=== PATIENT | female | born 1945 | race Caucasian/White ===

== ENCOUNTER 2018-08-14 16:28 | Inpatient (IN) ==
[2018-08-14] MEDS: NOREPINEPHRINE 8 MG in SODIUM CHLORIDE 0.9% 242 ML IV PRN ×2 (18:30→20:30)
[2018-08-14] MEDS ORDERED: DOPamine 800 MG/250 ML PREMIX IV PRN (18:37)
[2018-08-14] MEDS ORDERED: ONDANSETRON 4 MG/2 ML VIAL IV PRN (19:03)
[2018-08-14] MEDS ORDERED: ALBUTEROL 2.5 MG/3 ML NEB RESP TX PRN (19:03)
[2018-08-14] MEDS ORDERED: SODIUM CHLORIDE 0.9% 1,000 ML IV ONE ×2 (19:18→21:41)
[2018-08-14 19:29] LABS: Apearance,Urine CLEAR (Clear); Bacteria,Urine Occasional /HPF (Few); Bilirubin,Urine Negative (Negative); Blood, Urine Moderate mg/dL (Negative); Glucose,Urine (UA) Negative (Negative); Ketones,Urine 5 mg/dL (Negative); Nitrite,Urine Negative (Negative); Protein,Urine 30 MG/DL; RBC,Urine 2 /HPF (0-4); Urine Color Straw (Yellow); Urine Specific Gravity 1.008 (1.001-1.035); Urine Urobilinogen < 2.0 EU/DL (0.2-1.0); WBC,Urine 8 /HPF (0-6)
[2018-08-14] MEDS ORDERED: PIPERACILLIN/TAZOBACTAM 3,375 MG in SODIUM CHLORIDE 0.9% 100 ML IV SCH (19:30)
[2018-08-14] MEDS ORDERED: HEPARIN/NACL 0.9% 2 UNITS/ML 500 ML IV ONE (20:06)
[2018-08-14 20:22] LABS: Albumin 2.2 G/DL (3.4-5.0); Bilirubin,Total 0.8 MG/DL (0.2-1.0); Calcium 6.8 MG/DL (8.5-10.1); Osmolality,Calculated 294.3 MOS/KG (273-304); Total Protein 5.3 G/DL (6.4-8.3)
[2018-08-14 21:01] LABS: Basophils # 0.1 10*3/uL (0.0-0.2); Basophils % 0.3 % (0.0-0.8); Hematocrit 27.8 VOL% (35.7-47.0); Hemoglobin 8.5 GM/DL (12.0-16.0); Immature Granulocytes % 1.4 %; Immature Granulocytes Absolute 0.27 #; Lymphocytes # 2.3 10*3/uL (1.4-4.0); Lymphocytes % 11.7 % (21.3-54.2); Mean Corpuscular HGB Conc 30.6 GM/DL (32-36); Mean Corpuscular Volume 96.5 FL (87-102); Mean Platelet Volume 9.3 FL (9.6-12.0); Monocytes % 6.6 % (1.7-12.7); NRBC # 0.02 10*3/uL; Platelet Count 228 T/CUMM (130-400); Red Blood Count 2.88 MC/CUMM (3.8-5.5); Red Cell Distribution Width 14.2 % (9.3-17.3); White Blood Count 19.7 T/CUMM (4-12)
[2018-08-14] MEDS: ENOXAPARIN 30 MG/0.3 ML SYRINGE SUBCUT SCH (21:16)
[2018-08-14 21:34] LABS: INR 1.2; PT Patient Result 13.4 SECS
[2018-08-14] MEDS: VANCOMYCIN INJ 750 MG in SODIUM CHLORIDE 0.9% 250 ML IV SCH (22:45)
[2018-08-14] MEDS: SODIUM CHLORIDE 0.9% 1,000 ML IV SCH (22:45)
[2018-08-14] MEDS ORDERED: VANCOMYCIN INJ 250 MG in SODIUM CHLORIDE 0.9% 250 ML IV SCH (23:00)
[2018-08-15 01:27] LABS: ABG Base Excess -2.5 MMOL/L (-2.5-2.5); ABG HCO3 22.3 MMOL/L (20-26); ABG Oxygen Saturation 98.4 % (95-100); ABG PCO2 33.7 MM HG (35-48); ABG PH 7.414 (7.35-7.45); Allen Test Positive; Pt O2 Delivery Device Ventilator
[2018-08-15 04:30] LABS: ABG Oxygen Saturation 96.5 % (95-100); ABG PCO2 30.1 MM HG (35-48); ABG PH 7.421 (7.35-7.45); ABG PO2 83.5 MM HG (80-95); Allen Test Positive; Pt O2 Delivery Device Ventilator
[2018-08-15] MEDS: MIDAZOLAM 100 MG in SODIUM CHLORIDE 0.9% 80 ML IV PRN (04:51)
[2018-08-15 05:07] LABS: Basophils % 0.2 % (0.0-0.8); Hematocrit 26.2 VOL% (35.7-47.0); Hemoglobin 8.2 GM/DL (12.0-16.0); Immature Granulocytes % 0.8 %; Immature Granulocytes Absolute 0.11 #; Lymphocytes # 1.4 10*3/uL (1.4-4.0); Lymphocytes % 10.5 % (21.3-54.2); Mean Corpuscular HGB Conc 31.3 GM/DL (32-36); Mean Corpuscular Volume 94.2 FL (87-102); Mean Platelet Volume 10.1 FL (9.6-12.0); Monocytes % 5.5 % (1.7-12.7); Platelet Count 196 T/CUMM (130-400); Red Blood Count 2.78 MC/CUMM (3.8-5.5); Red Cell Distribution Width 14.4 % (9.3-17.3); White Blood Count 13.2 T/CUMM (4-12)
[2018-08-15 05:41] LABS: CKMB % 1.5 %
[2018-08-15 05:50] LABS: Troponin I 0.166 NG/ML (0.00-0.045)
[2018-08-15] MEDS: SODIUM CHLORIDE 0.9% 1,000 ML IV SCH ×2 (06:05→15:48)
[2018-08-15 06:40] LABS: Bilirubin,Total 0.6 MG/DL (0.2-1.0); Osmolality,Calculated 292.4 MOS/KG (273-304); Total Protein 4.6 G/DL (6.4-8.3)
[2018-08-15 06:43] LABS: Calcium 5.6 MG/DL (8.5-10.1)
[2018-08-15] MEDS ORDERED: MAGNESIUM SULF RIDER 2 GM in PREMIX 1 EACH IV ONE (06:55)
[2018-08-15] MEDS ORDERED: CALCIUM GLUCONATE 2,000 MG in SODIUM CHLORIDE 0.9% 100 ML IV ONE (07:30)
[2018-08-15] MEDS: POTASSIUM CHLORIDE RIDER 10 MEQ in PREMIX 1 EACH IV PRN (07:42)
[2018-08-15] MEDS: CLOPIDOGREL 75 MG TABLET PO SCH (08:21)
[2018-08-15] MEDS: CYANOCOBALAMIN 500 MCG TABLET PO SCH (08:21)
[2018-08-15] MEDS: PIPERACILLIN/TAZOBACTAM 3,375 MG in SODIUM CHLORIDE 0.9% 100 ML IV SCH ×2 (09:24→20:08)
[2018-08-15] MEDS: FAMOTIDINE 20 MG/2 ML VIAL IV SCH (11:47)
[2018-08-15] MEDS: AZITHROMYCIN INJ 500 MG in SODIUM CHLORIDE 0.9% 250 ML IV SCH (15:11)
[2018-08-15] MEDS: SODIUM CHLORIDE 0.45% 1,000 ML IV SCH (15:47)
[2018-08-15] MEDS: DRONEDARONE 400 MG TABLET PO SCH (17:24)
[2018-08-15] MEDS: ENOXAPARIN 30 MG/0.3 ML SYRINGE SUBCUT SCH (20:08)
[2018-08-15] MEDS: NOREPINEPHRINE 8 MG in SODIUM CHLORIDE 0.9% 242 ML IV PRN (22:03)
[2018-08-16 04:00] LABS: Basophils % 0.3 % (0.0-0.8); Hematocrit 23.8 VOL% (35.7-47.0); Hemoglobin 7.3 GM/DL (12.0-16.0); Immature Granulocytes % 0.7 %; Immature Granulocytes Absolute 0.08 #; Lymphocytes # 1.3 10*3/uL (1.4-4.0); Lymphocytes % 11.8 % (21.3-54.2); Mean Corpuscular HGB Conc 30.7 GM/DL (32-36); Mean Corpuscular Volume 95.6 FL (87-102); Mean Platelet Volume 9.4 FL (9.6-12.0); Monocytes % 6.8 % (1.7-12.7); Neutrophils % 80.4 % (38.7-73.9); Platelet Count 194 T/CUMM (130-400); Red Blood Count 2.49 MC/CUMM (3.8-5.5); Red Cell Distribution Width 14.7 % (9.3-17.3)
[2018-08-16 04:13] LABS: Calcium 6.2 MG/DL (8.5-10.1); Osmolality,Calculated 291.8 MOS/KG (273-304)
[2018-08-16] MEDS ORDERED: SODIUM CHLORIDE 0.9% 1,000 ML IV PRN (04:55)
[2018-08-16] MEDS: SODIUM CHLORIDE 0.45% 1,000 ML IV SCH ×2 (05:25→23:46)
[2018-08-16 05:33] LABS: ABG Base Excess -1.5 MMOL/L (-2.5-2.5); ABG HCO3 23.2 MMOL/L (20-26); ABG Oxygen Saturation 99.9 % (95-100); ABG PCO2 26.9 MM HG (35-48); ABG PH 7.501 (7.35-7.45); ABG TCO2 19.7 MMOL/L (23-27); Allen Test Positive; Pt O2 Delivery Device Ventilator
[2018-08-16] MEDS: CLOPIDOGREL 75 MG TABLET PO SCH ×2 (08:07→09:35)
[2018-08-16] MEDS: PIPERACILLIN/TAZOBACTAM 3,375 MG in SODIUM CHLORIDE 0.9% 100 ML IV SCH ×2 (08:07→20:56)
[2018-08-16] MEDS: CYANOCOBALAMIN 500 MCG TABLET PO SCH (08:07)
[2018-08-16] MEDS: DRONEDARONE 400 MG TABLET PO SCH ×2 (08:07→17:17)
[2018-08-16 10:04] LABS: Hematocrit 28.9 VOL% (35.7-47.0); Hemoglobin 9.1 GM/DL (12.0-16.0)
[2018-08-16] MEDS: FAMOTIDINE 20 MG/2 ML VIAL IV SCH (10:37)
[2018-08-16] MEDS: MIDAZOLAM 100 MG in SODIUM CHLORIDE 0.9% 80 ML IV PRN (10:59)
[2018-08-16] MEDS ORDERED: CALCIUM GLUCONATE 1,000 MG in SODIUM CHLORIDE 0.9% 100 ML IV SCH (14:30)
[2018-08-16] MEDS: AZITHROMYCIN INJ 500 MG in SODIUM CHLORIDE 0.9% 250 ML IV SCH (14:45)
[2018-08-16] MEDS: ACETAMINOPHEN 325 MG TABLET PO PRN (17:54)
[2018-08-16] MEDS: ENOXAPARIN 30 MG/0.3 ML SYRINGE SUBCUT SCH (20:57)
[2018-08-16] MEDS: VANCOMYCIN INJ 750 MG in SODIUM CHLORIDE 0.9% 250 ML IV SCH (22:34)
[2018-08-16] MEDS: MORPHINE 4 MG/1 ML VIAL IV PRN (23:20)
[2018-08-17] MEDS: CALCIUM GLUCONATE 1,000 MG in SODIUM CHLORIDE 0.9% 100 ML IV SCH ×2 (04:07→15:33)
[2018-08-17 04:23] LABS: ABG HCO3 23.6 MMOL/L (20-26); ABG Oxygen Saturation 97.5 % (95-100); ABG PCO2 32.3 MM HG (35-48); ABG PO2 87.4 MM HG (80-95); ABG TCO2 20.6 MMOL/L (23-27); Allen Test Positive; Pt O2 Delivery Device Ventilator
[2018-08-17] MEDS: MORPHINE 4 MG/1 ML VIAL IV PRN (04:49)
[2018-08-17 07:10] LABS: Basophils % 0.2 % (0.0-0.8); Hematocrit 29.7 VOL% (35.7-47.0); Hemoglobin 9.6 GM/DL (12.0-16.0); Immature Granulocytes % 0.9 %; Immature Granulocytes Absolute 0.11 #; Lymphocytes # 1.6 10*3/uL (1.4-4.0); Lymphocytes % 12.3 % (21.3-54.2); Mean Corpuscular HGB Conc 32.3 GM/DL (32-36); Mean Corpuscular Volume 90.5 FL (87-102); Mean Platelet Volume 9.3 FL (9.6-12.0); Monocytes % 4.4 % (1.7-12.7); Neutrophils % 82.2 % (38.7-73.9); Platelet Count 175 T/CUMM (130-400); Red Blood Count 3.28 MC/CUMM (3.8-5.5); White Blood Count 12.7 T/CUMM (4-12)
[2018-08-17 07:26] LABS: Calcium 7.7 MG/DL (8.5-10.1); Osmolality,Calculated 275.7 MOS/KG (273-304)
[2018-08-17] MEDS ORDERED: FUROSEMIDE 20 MG/2 ML VIAL IV ONE (08:00)
[2018-08-17] MEDS: CYANOCOBALAMIN 500 MCG TABLET PO SCH (08:23)
[2018-08-17] MEDS: DRONEDARONE 400 MG TABLET PO SCH ×2 (08:23→17:08)
[2018-08-17] MEDS: DILTIAZEM 60 MG TABLET PO SCH ×4 (08:23→21:34)
[2018-08-17] MEDS: PIPERACILLIN/TAZOBACTAM 3,375 MG in SODIUM CHLORIDE 0.9% 100 ML IV SCH ×2 (08:24→21:53)
[2018-08-17] MEDS: RIVAROXABAN 15 MG TABLET PO SCH (08:25)
[2018-08-17] MEDS: FAMOTIDINE 20 MG/2 ML VIAL IV SCH (10:14)
[2018-08-17] MEDS: INSULIN REGULAR 100 UNIT/ML SUBCUT SCH ×2 (12:20→17:09)
[2018-08-17] MEDS: DEXMEDETOMIDINE 200 MCG in SODIUM CHLORIDE 0.9% 48 ML IV PRN (14:43)
[2018-08-17] MEDS: AZITHROMYCIN INJ 500 MG in SODIUM CHLORIDE 0.9% 250 ML IV SCH (15:32)
[2018-08-17] MEDS ORDERED: VANCOMYCIN INJ 750 MG in SODIUM CHLORIDE 0.9% 250 ML IV SCH (23:00)
[2018-08-18] MEDS: INSULIN REGULAR 100 UNIT/ML SUBCUT SCH ×4 (00:04→18:35)
[2018-08-18] MEDS: DEXMEDETOMIDINE 200 MCG in SODIUM CHLORIDE 0.9% 48 ML IV PRN (01:26)
[2018-08-18] MEDS: MORPHINE 4 MG/1 ML VIAL IV PRN ×3 (01:55→11:53)
[2018-08-18 03:51] LABS: ABG Base Excess 3.4 MMOL/L (-2.5-2.5); ABG HCO3 27.4 MMOL/L (20-26); ABG Oxygen Saturation 98.5 % (95-100); ABG PCO2 32.9 MM HG (35-48); ABG PH 7.507 (7.35-7.45); ABG TCO2 23.3 MMOL/L (23-27); Allen Test Positive; Pt O2 Delivery Device Ventilator
[2018-08-18 04:49] LABS: Calcium 7.5 MG/DL (8.5-10.1)
[2018-08-18 04:57] LABS: Basophils % 0.3 % (0.0-0.8); Hematocrit 28.3 VOL% (35.7-47.0); Immature Granulocytes % 1.6 %; Immature Granulocytes Absolute 0.14 #; Lymphocytes # 1.7 10*3/uL (1.4-4.0); Lymphocytes % 18.5 % (21.3-54.2); Mean Corpuscular HGB Conc 31.8 GM/DL (32-36); Mean Corpuscular Volume 92.8 FL (87-102); Mean Platelet Volume 10.5 FL (9.6-12.0); Monocytes % 8.1 % (1.7-12.7); NRBC # 0.02 10*3/uL; Neutrophils % 71.5 % (38.7-73.9); Platelet Count 142 T/CUMM (130-400); Red Blood Count 3.05 MC/CUMM (3.8-5.5); Red Cell Distribution Width 15.9 % (9.3-17.3)
[2018-08-18] MEDS: MIDAZOLAM 100 MG in SODIUM CHLORIDE 0.9% 80 ML IV PRN (07:56)
[2018-08-18] MEDS: RIVAROXABAN 15 MG TABLET PO SCH (09:00)
[2018-08-18] MEDS: CYANOCOBALAMIN 500 MCG TABLET PO SCH (09:00)
[2018-08-18] MEDS: DRONEDARONE 400 MG TABLET PO SCH ×2 (09:00→17:10)
[2018-08-18] MEDS: LEVOFLOXACIN 750 MG TABLET PER TUBE SCH (09:00)
[2018-08-18] MEDS: PIPERACILLIN/TAZOBACTAM 3,375 MG in SODIUM CHLORIDE 0.9% 100 ML IV SCH ×2 (09:00→21:11)
[2018-08-18] MEDS ORDERED: MAGNESIUM SULF RIDER 4 GM in PREMIX 1 EACH IV PRN (09:43)
[2018-08-18] MEDS ORDERED: MAGNESIUM SULF RIDER 2 GM in PREMIX 1 EACH IV PRN (09:43)
[2018-08-18] MEDS: FAMOTIDINE 20 MG/2 ML VIAL IV SCH (10:15)
[2018-08-18] MEDS: PROPOFOL 1,000 MG/100 ML BOTTLE IV SCH ×2 (13:06→23:57)
[2018-08-18] MEDS: AZITHROMYCIN INJ 500 MG in SODIUM CHLORIDE 0.9% 250 ML IV SCH (15:47)
[2018-08-19] MEDS: INSULIN REGULAR 100 UNIT/ML SUBCUT SCH ×5 (00:24→23:56)
[2018-08-19 03:55] LABS: ABG Base Excess 4.7 MMOL/L (-2.5-2.5); ABG HCO3 28.6 MMOL/L (20-26); ABG Oxygen Saturation 99.4 % (95-100); ABG PCO2 37.9 MM HG (35-48); ABG PH 7.481 (7.35-7.45); ABG TCO2 25.6 MMOL/L (23-27); Allen Test Positive; Pt O2 Delivery Device Ventilator
[2018-08-19 05:50] LABS: Calcium 8.6 MG/DL (8.5-10.1); Osmolality,Calculated 275.8 MOS/KG (273-304)
[2018-08-19] MEDS ORDERED: FUROSEMIDE 40 MG/4 ML VIAL IV ONE (07:31)
[2018-08-19] MEDS: RIVAROXABAN 15 MG TABLET PO SCH (08:05)
[2018-08-19] MEDS: LEVOFLOXACIN 750 MG TABLET PER TUBE SCH (08:05)
[2018-08-19] MEDS: methylPREDNISolone SOD SUC 40 MG/1 ML VIAL IV SCH ×3 (08:05→23:56)
[2018-08-19] MEDS: CYANOCOBALAMIN 500 MCG TABLET PO SCH (08:05)
[2018-08-19] MEDS: DRONEDARONE 400 MG TABLET PO SCH ×2 (08:05→17:07)
[2018-08-19] MEDS: PIPERACILLIN/TAZOBACTAM 3,375 MG in SODIUM CHLORIDE 0.9% 100 ML IV SCH ×3 (08:05→23:54)
[2018-08-19] MEDS: ASPIRIN CHEW 81 MG TABLET PO SCH (08:05)
[2018-08-19] MEDS: PROPOFOL 1,000 MG/100 ML BOTTLE IV SCH ×2 (09:30→17:59)
[2018-08-19] MEDS: FAMOTIDINE 20 MG/2 ML VIAL IV SCH (11:51)
[2018-08-19] MEDS: AZITHROMYCIN INJ 500 MG in SODIUM CHLORIDE 0.9% 250 ML IV SCH (15:41)
[2018-08-20] MEDS: PROPOFOL 1,000 MG/100 ML BOTTLE IV SCH ×4 (04:12→22:51)
[2018-08-20 04:50] LABS: Calcium 8.8 MG/DL (8.5-10.1); Osmolality,Calculated 286.4 MOS/KG (273-304)
[2018-08-20] MEDS: INSULIN REGULAR 100 UNIT/ML SUBCUT SCH ×4 (06:27→23:58)
[2018-08-20] MEDS: PIPERACILLIN/TAZOBACTAM 3,375 MG in SODIUM CHLORIDE 0.9% 100 ML IV SCH ×3 (06:30→23:00)
[2018-08-20] MEDS: methylPREDNISolone SOD SUC 40 MG/1 ML VIAL IV SCH ×3 (08:04→23:58)
[2018-08-20] MEDS: CYANOCOBALAMIN 500 MCG TABLET PO SCH (08:04)
[2018-08-20] MEDS: LEVOFLOXACIN 750 MG TABLET PER TUBE SCH (08:04)
[2018-08-20] MEDS: DRONEDARONE 400 MG TABLET PO SCH ×2 (08:04→17:30)
[2018-08-20] MEDS: RIVAROXABAN 15 MG TABLET PO SCH (08:04)
[2018-08-20] MEDS: ASPIRIN CHEW 81 MG TABLET PO SCH (08:05)
[2018-08-20 09:55] LABS: ABG Base Excess 6.6 MMOL/L (-2.5-2.5); ABG HCO3 30.4 MMOL/L (20-26); ABG Oxygen Saturation 99.6 % (95-100); ABG PCO2 35.1 MM HG (35-48); ABG PH 7.531 (7.35-7.45); ABG TCO2 26.4 MMOL/L (23-27); Allen Test Positive; Pt O2 Delivery Device Ventilator
[2018-08-20] MEDS: FAMOTIDINE 20 MG/2 ML VIAL IV SCH (11:01)
[2018-08-20] MEDS: DILTIAZEM 30 MG TABLET PO SCH ×3 (12:53→20:29)
[2018-08-20] MEDS ORDERED: DILTIAZEM 60 MG TABLET PO SCH (13:00)
[2018-08-21] MEDS ORDERED: METOPROLOL TARTRATE 5 MG/5 ML VIAL IV ONE ×2 (03:58→03:59)
[2018-08-21 05:20] LABS: Calcium 9.1 MG/DL (8.5-10.1); Osmolality,Calculated 288.3 MOS/KG (273-304)
[2018-08-21 05:28] LABS: ABG Base Excess 5.6 MMOL/L (-2.5-2.5); ABG HCO3 29.6 MMOL/L (20-26); ABG PCO2 29.4 MM HG (35-48); ABG TCO2 25.5 MMOL/L (23-27); Allen Test Positive; Pt O2 Delivery Device Ventilator
[2018-08-21] MEDS: INSULIN REGULAR 100 UNIT/ML SUBCUT SCH ×3 (06:10→18:22)
[2018-08-21] MEDS: PIPERACILLIN/TAZOBACTAM 3,375 MG in SODIUM CHLORIDE 0.9% 100 ML IV SCH ×3 (06:10→23:42)
[2018-08-21] MEDS: PROPOFOL 1,000 MG/100 ML BOTTLE IV SCH ×3 (06:36→21:27)
[2018-08-21] MEDS: LEVOFLOXACIN 750 MG TABLET PER TUBE SCH (08:41)
[2018-08-21] MEDS: DRONEDARONE 400 MG TABLET PO SCH ×2 (08:41→16:22)
[2018-08-21] MEDS: ASPIRIN CHEW 81 MG TABLET PO SCH (08:42)
[2018-08-21] MEDS: POTASSIUM CHLORIDE 20 MEQ/15 ML UDCUP PER TUBE SCH ×5 (08:42→21:32)
[2018-08-21] MEDS: RIVAROXABAN 15 MG TABLET PO SCH (08:42)
[2018-08-21] MEDS: DILTIAZEM 60 MG TABLET PO SCH ×2 (08:43→16:21)
[2018-08-21] MEDS: FUROSEMIDE 20 MG/2 ML VIAL IV SCH (08:44)
[2018-08-21] MEDS: METOPROLOL TARTRATE 25 MG TABLET PER TUBE SCH ×2 (08:44→21:10)
[2018-08-21] MEDS: CYANOCOBALAMIN 500 MCG TABLET PO SCH (08:44)
[2018-08-21] MEDS: methylPREDNISolone SOD SUC 40 MG/1 ML VIAL IV SCH ×2 (08:46→21:05)
[2018-08-21] MEDS: FAMOTIDINE 20 MG/2 ML VIAL IV SCH (12:34)
[2018-08-21] MEDS: MIDAZOLAM 100 MG in SODIUM CHLORIDE 0.9% 80 ML IV PRN (16:22)
[2018-08-22] MEDS: INSULIN REGULAR 100 UNIT/ML SUBCUT SCH ×4 (00:47→18:20)
[2018-08-22] MEDS: DILTIAZEM 60 MG TABLET PO SCH ×4 (00:48→23:01)
[2018-08-22 03:21] LABS: ABG Base Excess 4.6 MMOL/L (-2.5-2.5); ABG HCO3 28.6 MMOL/L (20-26); ABG Oxygen Saturation 99.2 % (95-100); ABG PH 7.517 (7.35-7.45); ABG TCO2 25.7 MMOL/L (23-27); Allen Test Positive; Pt O2 Delivery Device Ventilator
[2018-08-22 03:55] LABS: Basophils % 0.2 % (0.0-0.8); Hematocrit 24.7 VOL% (35.7-47.0); Hemoglobin 7.7 GM/DL (12.0-16.0); Immature Granulocytes % 2.3 %; Immature Granulocytes Absolute 0.24 #; Lymphocytes # 0.8 10*3/uL (1.4-4.0); Lymphocytes % 7.5 % (21.3-54.2); Mean Corpuscular HGB Conc 31.2 GM/DL (32-36); Mean Corpuscular Volume 91.8 FL (87-102); Mean Platelet Volume 10.2 FL (9.6-12.0); Monocytes % 5.8 % (1.7-12.7); Neutrophils % 84.2 % (38.7-73.9); Platelet Count 271 T/CUMM (130-400); Red Blood Count 2.69 MC/CUMM (3.8-5.5); Red Cell Distribution Width 16.2 % (9.3-17.3); White Blood Count 10.5 T/CUMM (4-12)
[2018-08-22 04:17] LABS: Calcium 8.5 MG/DL (8.5-10.1); Osmolality,Calculated 296.3 MOS/KG (273-304)
[2018-08-22] MEDS: PIPERACILLIN/TAZOBACTAM 3,375 MG in SODIUM CHLORIDE 0.9% 100 ML IV SCH ×3 (07:01→22:53)
[2018-08-22] MEDS ORDERED: hydrALAZINE 20 MG/1 ML VIAL IV PRN (08:43)
[2018-08-22] MEDS: PROPOFOL 1,000 MG/100 ML BOTTLE IV SCH ×2 (09:21→17:40)
[2018-08-22] MEDS: LEVOFLOXACIN 750 MG TABLET PER TUBE SCH (09:22)
[2018-08-22] MEDS: DRONEDARONE 400 MG TABLET PO SCH ×2 (09:22→16:55)
[2018-08-22] MEDS: METOPROLOL TARTRATE 25 MG TABLET PER TUBE SCH ×2 (09:22→20:54)
[2018-08-22] MEDS: ASPIRIN CHEW 81 MG TABLET PO SCH (09:22)
[2018-08-22] MEDS: RIVAROXABAN 15 MG TABLET PO SCH (09:22)
[2018-08-22] MEDS: CYANOCOBALAMIN 500 MCG TABLET PO SCH (09:23)
[2018-08-22] MEDS: FUROSEMIDE 20 MG/2 ML VIAL IV SCH (09:23)
[2018-08-22] MEDS: methylPREDNISolone SOD SUC 40 MG/1 ML VIAL IV SCH ×2 (09:25→19:49)
[2018-08-22] MEDS: FAMOTIDINE 20 MG/2 ML VIAL IV SCH (12:10)
[2018-08-23] MEDS: INSULIN REGULAR 100 UNIT/ML SUBCUT SCH ×4 (00:14→21:14)
[2018-08-23] MEDS: PROPOFOL 1,000 MG/100 ML BOTTLE IV SCH ×3 (00:15→12:07)
[2018-08-23 05:08] LABS: Basophils % 0.1 % (0.0-0.8); Hematocrit 22.4 VOL% (35.7-47.0); Hemoglobin 7.3 GM/DL (12.0-16.0); Immature Granulocytes % 4.2 %; Immature Granulocytes Absolute 0.38 #; Lymphocytes # 0.8 10*3/uL (1.4-4.0); Lymphocytes % 8.5 % (21.3-54.2); Mean Corpuscular HGB Conc 32.6 GM/DL (32-36); Mean Corpuscular Volume 90.3 FL (87-102); Mean Platelet Volume 10.1 FL (9.6-12.0); Monocytes % 8.4 % (1.7-12.7); Neutrophils % 78.8 % (38.7-73.9); Platelet Count 275 T/CUMM (130-400); Red Blood Count 2.48 MC/CUMM (3.8-5.5); Red Cell Distribution Width 15.9 % (9.3-17.3); White Blood Count 9.1 T/CUMM (4-12)
[2018-08-23 05:17] LABS: Calcium 8.6 MG/DL (8.5-10.1); Osmolality,Calculated 291.5 MOS/KG (273-304)
[2018-08-23] MEDS: PIPERACILLIN/TAZOBACTAM 3,375 MG in SODIUM CHLORIDE 0.9% 100 ML IV SCH ×3 (06:22→23:13)
[2018-08-23] MEDS: DILTIAZEM 60 MG TABLET PO SCH ×3 (06:38→23:16)
[2018-08-23 07:18] LABS: Allen Test Positive; Pt O2 Delivery Device Ventilator
[2018-08-23 07:19] LABS: ABG Base Excess 4.9 MMOL/L (-2.5-2.5); ABG HCO3 28.9 MMOL/L (20-26); ABG Oxygen Saturation 99.1 % (95-100); ABG PCO2 38.3 MM HG (35-48); ABG PH 7.483 (7.35-7.45); ABG TCO2 26.7 MMOL/L (23-27)
[2018-08-23] MEDS: METOPROLOL TARTRATE 25 MG TABLET PER TUBE SCH ×2 (08:41→21:15)
[2018-08-23] MEDS: DRONEDARONE 400 MG TABLET PO SCH ×2 (08:41→17:30)
[2018-08-23] MEDS: ASPIRIN CHEW 81 MG TABLET PO SCH (08:42)
[2018-08-23] MEDS: LEVOFLOXACIN 750 MG TABLET PER TUBE SCH (08:42)
[2018-08-23] MEDS: RIVAROXABAN 15 MG TABLET PO SCH (08:42)
[2018-08-23] MEDS: CYANOCOBALAMIN 500 MCG TABLET PO SCH (08:42)
[2018-08-23] MEDS: FUROSEMIDE 20 MG/2 ML VIAL IV SCH (08:42)
[2018-08-23] MEDS: methylPREDNISolone SOD SUC 40 MG/1 ML VIAL IV SCH ×2 (09:35→20:00)
[2018-08-23] MEDS: POTASSIUM CHLORIDE RIDER 10 MEQ in PREMIX 1 EACH IV PRN ×2 (09:38→10:38)
[2018-08-23] MEDS: FAMOTIDINE 20 MG/2 ML VIAL IV SCH (11:04)
[2018-08-23] MEDS ORDERED: DEXTROSE 50% 25 GM/50 ML VIAL IV PRN (11:37)
[2018-08-23] MEDS ORDERED: GLUCAGON 1 MG VIAL IM PRN (11:37)
[2018-08-23] MEDS: ACETAMINOPHEN 325 MG TABLET PO PRN ×2 (18:19→22:06)
[2018-08-24 03:25] LABS: ABG Base Excess 5.7 MMOL/L (-2.5-2.5); ABG HCO3 29.5 MMOL/L (20-26); ABG Oxygen Saturation 95.7 % (95-100); ABG PCO2 39.1 MM HG (35-48); ABG PH 7.485 (7.35-7.45); ABG PO2 74.9 MM HG (80-95); ABG TCO2 27.5 MMOL/L (23-27); Allen Test Positive
[2018-08-24 04:20] LABS: Basophils % 0.2 % (0.0-0.8); Hematocrit 24.2 VOL% (35.7-47.0); Hemoglobin 7.6 GM/DL (12.0-16.0); Lymphocytes % 9.5 % (21.3-54.2); Mean Corpuscular HGB Conc 31.4 GM/DL (32-36); Mean Corpuscular Volume 90.6 FL (87-102); Mean Platelet Volume 9.7 FL (9.6-12.0); Monocytes % 4.6 % (1.7-12.7); Neutrophils % 81.7 % (38.7-73.9); Platelet Count 321 T/CUMM (130-400); Red Blood Count 2.67 MC/CUMM (3.8-5.5); Red Cell Distribution Width 15.8 % (9.3-17.3)
[2018-08-24 04:40] LABS: Calcium 8.6 MG/DL (8.5-10.1); Osmolality,Calculated 289.7 MOS/KG (273-304)
[2018-08-24 05:09] LABS: Prealbumin 32.9 MG/DL (20-40)
[2018-08-24] MEDS: PIPERACILLIN/TAZOBACTAM 3,375 MG in SODIUM CHLORIDE 0.9% 100 ML IV SCH ×3 (06:59→23:13)
[2018-08-24] MEDS: DILTIAZEM 60 MG TABLET PO SCH ×3 (07:00→23:12)
[2018-08-24] MEDS: POTASSIUM CHLORIDE RIDER 10 MEQ in PREMIX 1 EACH IV PRN ×2 (07:01→09:13)
[2018-08-24] MEDS: INSULIN REGULAR 100 UNIT/ML SUBCUT SCH ×4 (08:08→20:05)
[2018-08-24] MEDS: CYANOCOBALAMIN 500 MCG TABLET PO SCH (08:09)
[2018-08-24] MEDS: DRONEDARONE 400 MG TABLET PO SCH ×2 (08:09→17:00)
[2018-08-24] MEDS: RIVAROXABAN 15 MG TABLET PO SCH (08:10)
[2018-08-24] MEDS: ASPIRIN CHEW 81 MG TABLET PO SCH (08:10)
[2018-08-24] MEDS: LEVOFLOXACIN 750 MG TABLET PER TUBE SCH (08:10)
[2018-08-24] MEDS: methylPREDNISolone SOD SUC 40 MG/1 ML VIAL IV SCH ×2 (08:15→20:05)
[2018-08-24] MEDS: METOPROLOL TARTRATE 25 MG TABLET PO SCH ×2 (08:25→20:05)
[2018-08-24] MEDS: FAMOTIDINE 20 MG/2 ML VIAL IV SCH (11:13)
[2018-08-24] MEDS: ACETAMINOPHEN 325 MG TABLET PO PRN (11:55)
[2018-08-25 04:50] LABS: Albumin 2.1 G/DL (3.4-5.0); Bilirubin,Total 0.9 MG/DL (0.2-1.0); Calcium 7.9 MG/DL (8.5-10.1); Osmolality,Calculated 285.8 MOS/KG (273-304); Total Protein 5.7 G/DL (6.4-8.3)
[2018-08-25] MEDS ORDERED: POTASSIUM CHLORIDE INJ 30 MEQ in SODIUM CHLORIDE 0.9% 285 ML IV PRN (05:30)
[2018-08-25] MEDS: INSULIN REGULAR 100 UNIT/ML SUBCUT SCH ×4 (07:53→23:07)
[2018-08-25] MEDS: methylPREDNISolone SOD SUC 40 MG/1 ML VIAL IV SCH (08:27)
[2018-08-25] MEDS: LEVOFLOXACIN 750 MG TABLET PER TUBE SCH (08:27)
[2018-08-25] MEDS: CYANOCOBALAMIN 500 MCG TABLET PO SCH (08:27)
[2018-08-25] MEDS: RIVAROXABAN 15 MG TABLET PO SCH (08:27)
[2018-08-25] MEDS: METOPROLOL TARTRATE 25 MG TABLET PO SCH ×2 (08:27→20:47)
[2018-08-25] MEDS: PIPERACILLIN/TAZOBACTAM 3,375 MG in SODIUM CHLORIDE 0.9% 100 ML IV SCH (08:27)
[2018-08-25] MEDS: DILTIAZEM CD 120 MG CAPSULE PO SCH ×2 (08:28→20:47)
[2018-08-25] MEDS: ASPIRIN CHEW 81 MG TABLET PO SCH (08:28)
[2018-08-25] MEDS: DRONEDARONE 400 MG TABLET PO SCH ×2 (08:28→17:49)
[2018-08-25] MEDS: FAMOTIDINE 20 MG/2 ML VIAL IV SCH (11:44)
[2018-08-25] MEDS ORDERED: SKIN HEALING OINT (AQUAPHOR) 50 GM TUBE TOP PRN (23:42)
[2018-08-26] MEDS: METOPROLOL TARTRATE 25 MG TABLET PO SCH ×2 (08:53→20:31)
[2018-08-26] MEDS: DILTIAZEM CD 120 MG CAPSULE PO SCH ×2 (08:53→20:31)
[2018-08-26] MEDS: CYANOCOBALAMIN 500 MCG TABLET PO SCH (08:53)
[2018-08-26] MEDS: RIVAROXABAN 15 MG TABLET PO SCH (08:54)
[2018-08-26] MEDS: predniSONE 20 MG TABLET PO SCH (08:54)
[2018-08-26] MEDS: DRONEDARONE 400 MG TABLET PO SCH ×2 (08:54→17:41)
[2018-08-26] MEDS: ASPIRIN CHEW 81 MG TABLET PO SCH (08:55)
[2018-08-26] MEDS: INSULIN REGULAR 100 UNIT/ML SUBCUT SCH ×4 (08:57→22:22)
[2018-08-26 09:55] LABS: Basophils % 0.2 % (0.0-0.8); Hematocrit 25.3 VOL% (35.7-47.0); Hemoglobin 8.1 GM/DL (12.0-16.0); Immature Granulocytes % 3.7 %; Immature Granulocytes Absolute 0.59 #; Lymphocytes # 1.7 10*3/uL (1.4-4.0); Lymphocytes % 10.3 % (21.3-54.2); NRBC # 0.03 10*3/uL; Neutrophils % 76.8 % (38.7-73.9); Platelet Count 379 T/CUMM (130-400); Red Blood Count 2.78 MC/CUMM (3.8-5.5); Red Cell Distribution Width 16.1 % (9.3-17.3); White Blood Count 16.2 T/CUMM (4-12)
[2018-08-26 10:16] LABS: Hypochromasia Slight; Lymphocytes 12 % (20-55); Platelet Estimate Adequate; Segmented Neutrophils 81 % (50-85); Total Cells Counted 100
[2018-08-26 10:27] LABS: Calcium 8.2 MG/DL (8.5-10.1); Osmolality,Calculated 285.5 MOS/KG (273-304)
[2018-08-26] MEDS: FAMOTIDINE 20 MG/2 ML VIAL IV SCH (11:36)
[2018-08-26] MEDS ORDERED: LIDOCAINE 1% 20 ML VIAL MISC INJ ONE (14:30)
[2018-08-26] MEDS ORDERED: LIDOCAINE 2% VISCOUS 100 ML BOTTLE SWISH/SPIT ONE (14:30)
[2018-08-26] MEDS ORDERED: LIDOCAINE 2% 20 ML VIAL RESP TX ONE (14:30)
[2018-08-26] MEDS: DESITIN 4OZ/NYSTATIN 15 GRAM MIXTURE PASTE TOP SCH ×2 (16:00→20:34)
[2018-08-26 18:52] LABS: Apearance,Urine Slightly Hazy (Clear); Bilirubin,Urine Negative (Negative); Blood, Urine Large mg/dL (Negative); Glucose,Urine (UA) 50 mg/dL (Negative); Ketones,Urine 5 mg/dL (Negative); Nitrite,Urine Negative (Negative); Protein,Urine 30 MG/DL; RBC,Urine 94 /HPF (0-4); Squamous Epithelial Cell,Urine Occasional /HPF (0-10); Urine Color Yellow (Yellow); Urine Urobilinogen < 2.0 EU/DL (0.2-1.0); WBC,Urine 31 /HPF (0-6)
[2018-08-26] MEDS: ALBUTEROL/IPRATROPIUM 3 ML NEB RESP TX SCH (19:38)
[2018-08-27 04:37] LABS: Basophils % 0.2 % (0.0-0.8); Hematocrit 21.8 VOL% (35.7-47.0); Hemoglobin 6.8 GM/DL (12.0-16.0); Immature Granulocytes % 3.2 %; Lymphocytes # 1.4 10*3/uL (1.4-4.0); Lymphocytes % 11.7 % (21.3-54.2); Mean Corpuscular HGB Conc 31.2 GM/DL (32-36); Mean Corpuscular Volume 91.2 FL (87-102); Mean Platelet Volume 9.2 FL (9.6-12.0); Monocytes % 7.8 % (1.7-12.7); NRBC # 0.03 10*3/uL; Neutrophils % 77.1 % (38.7-73.9); Platelet Count 320 T/CUMM (130-400); Red Blood Count 2.39 MC/CUMM (3.8-5.5); Red Cell Distribution Width 16.4 % (9.3-17.3); White Blood Count 12.3 T/CUMM (4-12)
[2018-08-27 04:56] LABS: Calcium 7.8 MG/DL (8.5-10.1); Osmolality,Calculated 285.4 MOS/KG (273-304)
[2018-08-27] MEDS: ALBUTEROL/IPRATROPIUM 3 ML NEB RESP TX SCH ×4 (07:15→19:20)
[2018-08-27] MEDS ORDERED: SODIUM CHLORIDE 0.9% 1,000 ML IV PRN (08:23)
[2018-08-27] MEDS: DILTIAZEM CD 120 MG CAPSULE PO SCH ×2 (09:38→21:19)
[2018-08-27] MEDS: CYANOCOBALAMIN 500 MCG TABLET PO SCH (09:38)
[2018-08-27] MEDS: METOPROLOL TARTRATE 25 MG TABLET PO SCH ×2 (09:38→21:19)
[2018-08-27] MEDS: predniSONE 20 MG TABLET PO SCH (09:38)
[2018-08-27] MEDS: INSULIN REGULAR 100 UNIT/ML SUBCUT SCH ×2 (09:40→12:38)
[2018-08-27] MEDS: DRONEDARONE 400 MG TABLET PO SCH ×2 (09:43→17:32)
[2018-08-27] MEDS: RIVAROXABAN 15 MG TABLET PO SCH (10:09)
[2018-08-27] MEDS: DESITIN 4OZ/NYSTATIN 15 GRAM MIXTURE PASTE TOP SCH ×2 (10:09→21:19)
[2018-08-27] MEDS: FAMOTIDINE 20 MG/2 ML VIAL IV SCH (13:46)
[2018-08-28] MEDS ORDERED: FUROSEMIDE 40 MG/4 ML VIAL ONE (02:59)
[2018-08-28] MEDS ORDERED: ALBUTEROL/IPRATROPIUM 3 ML NEB RESP TX ONE (03:00)
[2018-08-28] MEDS ORDERED: FUROSEMIDE 40 MG/4 ML VIAL IV ONE (03:01)
[2018-08-28] MEDS: MORPHINE 4 MG/1 ML VIAL IV PRN (03:12)
[2018-08-28 04:16] LABS: Apearance,Urine CLOUDY (Clear); Bilirubin,Urine Negative (Negative); Blood, Urine Large mg/dL (Negative); Glucose,Urine (UA) Negative (Negative); Hyaline Casts,Urine 5 /LPF (0-3); Ketones,Urine Negative (Negative); Mucus,Urine Occasional /LPF (Occasional); Nitrite,Urine Negative (Negative); Protein,Urine 30 MG/DL; RBC,Urine 127 /HPF (0-4); Urine Color Yellow (Yellow); Urine Urobilinogen < 2.0 EU/DL (0.2-1.0); WBC,Urine 19 /HPF (0-6)
[2018-08-28 06:05] LABS: Basophils # 0.1 10*3/uL (0.0-0.2); Basophils % 0.4 % (0.0-0.8); Hematocrit 37.2 VOL% (35.7-47.0); Hemoglobin 12.6 GM/DL (12.0-16.0); Immature Granulocytes % 4.5 %; Immature Granulocytes Absolute 0.67 #; Lymphocytes # 0.9 10*3/uL (1.4-4.0); Lymphocytes % 5.9 % (21.3-54.2); Mean Corpuscular HGB Conc 33.9 GM/DL (32-36); Mean Corpuscular Volume 90.1 FL (87-102); Monocytes % 4.1 % (1.7-12.7); NRBC # 0.04 10*3/uL; Neutrophils % 85.1 % (38.7-73.9); Platelet Count 307 T/CUMM (130-400); Red Blood Count 4.13 MC/CUMM (3.8-5.5); Red Cell Distribution Width 15.9 % (9.3-17.3)
[2018-08-28 06:35] LABS: Calcium 8.8 MG/DL (8.5-10.1); Osmolality,Calculated 283.5 MOS/KG (273-304)
[2018-08-28] MEDS: ALBUTEROL/IPRATROPIUM 3 ML NEB RESP TX SCH ×5 (07:17→23:35)
[2018-08-28 07:25] LABS: Band Neutrophils 2 % (0-10); Lymphocytes 6 % (20-55); Segmented Neutrophils 88 % (50-85); Total Cells Counted 100
[2018-08-28 07:26] LABS: Hypochromasia Slight; Microcytosis Slight; Polychromasia Slight
[2018-08-28] MEDS: DRONEDARONE 400 MG TABLET PO SCH ×2 (09:06→16:40)
[2018-08-28] MEDS: METOPROLOL TARTRATE 25 MG TABLET PO SCH ×2 (09:06→21:56)
[2018-08-28] MEDS: predniSONE 20 MG TABLET PO SCH (09:06)
[2018-08-28] MEDS: DESITIN 4OZ/NYSTATIN 15 GRAM MIXTURE PASTE TOP SCH ×2 (09:06→21:03)
[2018-08-28] MEDS: CYANOCOBALAMIN 500 MCG TABLET PO SCH (09:06)
[2018-08-28] MEDS: DILTIAZEM CD 120 MG CAPSULE PO SCH ×2 (09:06→20:51)
[2018-08-28] MEDS: PANTOPRAZOLE 40 MG VIAL IV SCH ×2 (09:10→21:20)
[2018-08-28] MEDS: methylPREDNISolone SOD SUC 40 MG/1 ML VIAL IV SCH ×2 (11:24→18:26)
[2018-08-29] MEDS: methylPREDNISolone SOD SUC 40 MG/1 ML VIAL IV SCH ×3 (03:25→18:44)
[2018-08-29] MEDS: ALBUTEROL/IPRATROPIUM 3 ML NEB RESP TX SCH ×5 (03:35→19:26)
[2018-08-29 06:22] LABS: Calcium 8.4 MG/DL (8.5-10.1); Osmolality,Calculated 282.8 MOS/KG (273-304)
[2018-08-29 08:11] LABS: Basophils % 0.1 % (0.0-0.8); Hematocrit 37.7 VOL% (35.7-47.0); Hemoglobin 12.1 GM/DL (12.0-16.0); Immature Granulocytes % 2.1 %; Immature Granulocytes Absolute 0.19 #; Lymphocytes # 0.6 10*3/uL (1.4-4.0); Lymphocytes % 6.1 % (21.3-54.2); Mean Corpuscular HGB Conc 32.1 GM/DL (32-36); Mean Corpuscular Volume 92.2 FL (87-102); Mean Platelet Volume 8.9 FL (9.6-12.0); Monocytes % 2.1 % (1.7-12.7); NRBC # 0.02 10*3/uL; Neutrophils % 89.6 % (38.7-73.9); Platelet Count 269 T/CUMM (130-400); Red Blood Count 4.09 MC/CUMM (3.8-5.5); Red Cell Distribution Width 16.3 % (9.3-17.3); White Blood Count 9.1 T/CUMM (4-12)
[2018-08-29] MEDS: METOPROLOL TARTRATE 25 MG TABLET PO SCH ×2 (08:58→20:57)
[2018-08-29] MEDS: DILTIAZEM CD 120 MG CAPSULE PO SCH ×2 (08:58→20:57)
[2018-08-29] MEDS: DRONEDARONE 400 MG TABLET PO SCH ×2 (08:58→17:00)
[2018-08-29] MEDS: CYANOCOBALAMIN 500 MCG TABLET PO SCH (08:59)
[2018-08-29] MEDS: PANTOPRAZOLE 40 MG VIAL IV SCH ×2 (08:59→20:58)
[2018-08-29] MEDS: DESITIN 4OZ/NYSTATIN 15 GRAM MIXTURE PASTE TOP SCH ×2 (09:00→20:59)
[2018-08-29] MEDS: NYSTATIN 500,000 UNIT/5 ML UDCUP SWISH/SWAL SCH ×3 (12:14→20:58)
[2018-08-30] MEDS: ALBUTEROL/IPRATROPIUM 3 ML NEB RESP TX SCH ×7 (01:11→23:27)
[2018-08-30] MEDS: methylPREDNISolone SOD SUC 40 MG/1 ML VIAL IV SCH ×3 (02:20→19:41)
[2018-08-30 04:48] LABS: Basophils % 0.2 % (0.0-0.8); Hematocrit 32.2 VOL% (35.7-47.0); Hemoglobin 10.6 GM/DL (12.0-16.0); Immature Granulocytes % 1.3 %; Immature Granulocytes Absolute 0.13 #; Lymphocytes # 0.6 10*3/uL (1.4-4.0); Lymphocytes % 5.7 % (21.3-54.2); Mean Corpuscular HGB Conc 32.9 GM/DL (32-36); Mean Platelet Volume 9.8 FL (9.6-12.0); Monocytes % 2.9 % (1.7-12.7); Neutrophils % 89.9 % (38.7-73.9); Platelet Count 202 T/CUMM (130-400); Red Cell Distribution Width 16.5 % (9.3-17.3); White Blood Count 10.1 T/CUMM (4-12)
[2018-08-30] MEDS: DRONEDARONE 400 MG TABLET PO SCH ×2 (09:57→18:22)
[2018-08-30] MEDS: METOPROLOL TARTRATE 25 MG TABLET PO SCH ×2 (09:57→21:52)
[2018-08-30] MEDS: CYANOCOBALAMIN 500 MCG TABLET PO SCH (09:57)
[2018-08-30] MEDS: DILTIAZEM CD 120 MG CAPSULE PO SCH ×2 (09:58→21:53)
[2018-08-30] MEDS: NYSTATIN 500,000 UNIT/5 ML UDCUP SWISH/SWAL SCH ×4 (09:59→21:52)
[2018-08-30] MEDS: DESITIN 4OZ/NYSTATIN 15 GRAM MIXTURE PASTE TOP SCH ×2 (10:01→21:55)
[2018-08-30] MEDS: MORPHINE 4 MG/1 ML VIAL IV PRN (15:40)
[2018-08-30] MEDS: PANTOPRAZOLE 40 MG VIAL IV SCH ×2 (18:29→21:53)
[2018-08-31] MEDS: methylPREDNISolone SOD SUC 40 MG/1 ML VIAL IV SCH ×3 (02:10→21:48)
[2018-08-31] MEDS: ALBUTEROL/IPRATROPIUM 3 ML NEB RESP TX SCH ×6 (02:56→22:50)
[2018-08-31] MEDS: CYANOCOBALAMIN 500 MCG TABLET PO SCH (09:29)
[2018-08-31] MEDS: METOPROLOL TARTRATE 25 MG TABLET PO SCH ×2 (09:30→21:48)
[2018-08-31] MEDS: DILTIAZEM CD 120 MG CAPSULE PO SCH ×2 (09:30→21:48)
[2018-08-31] MEDS: DRONEDARONE 400 MG TABLET PO SCH ×2 (09:30→17:52)
[2018-08-31] MEDS: NYSTATIN 500,000 UNIT/5 ML UDCUP SWISH/SWAL SCH ×4 (09:31→21:47)
[2018-08-31] MEDS: DESITIN 4OZ/NYSTATIN 15 GRAM MIXTURE PASTE TOP SCH ×2 (09:32→21:49)
[2018-08-31] MEDS: PANTOPRAZOLE 40 MG VIAL IV SCH ×2 (13:09→22:11)
[2018-09-01] MEDS: ALBUTEROL/IPRATROPIUM 3 ML NEB RESP TX SCH ×6 (03:03→23:18)
[2018-09-01] MEDS: methylPREDNISolone SOD SUC 40 MG/1 ML VIAL IV SCH (03:40)
[2018-09-01 06:34] LABS: Basophils % 0.1 % (0.0-0.8); Hematocrit 32.2 VOL% (35.7-47.0); Hemoglobin 10.6 GM/DL (12.0-16.0); Immature Granulocytes % 1.8 %; Immature Granulocytes Absolute 0.19 #; Lymphocytes # 0.5 10*3/uL (1.4-4.0); Lymphocytes % 4.9 % (21.3-54.2); Mean Corpuscular HGB Conc 32.9 GM/DL (32-36); Mean Corpuscular Volume 92.8 FL (87-102); Mean Platelet Volume 9.3 FL (9.6-12.0); Monocytes % 2.5 % (1.7-12.7); Neutrophils % 90.7 % (38.7-73.9); Platelet Count 212 T/CUMM (130-400); Red Blood Count 3.47 MC/CUMM (3.8-5.5); White Blood Count 10.6 T/CUMM (4-12)
[2018-09-01 07:03] LABS: Calcium 8.2 MG/DL (8.5-10.1); Osmolality,Calculated 288.5 MOS/KG (273-304)
[2018-09-01 07:10] LABS: Hypochromasia 1+; Lymphocytes 3 % (20-55); Platelet Estimate Adequate; Segmented Neutrophils 95 % (50-85); Total Cells Counted 100
[2018-09-01] MEDS: NYSTATIN 500,000 UNIT/5 ML UDCUP SWISH/SWAL SCH ×4 (09:12→22:45)
[2018-09-01] MEDS: DRONEDARONE 400 MG TABLET PO SCH ×2 (09:12→17:29)
[2018-09-01] MEDS: DILTIAZEM CD 120 MG CAPSULE PO SCH ×2 (09:12→22:26)
[2018-09-01] MEDS: METOPROLOL TARTRATE 25 MG TABLET PO SCH ×2 (09:12→22:27)
[2018-09-01] MEDS: CYANOCOBALAMIN 500 MCG TABLET PO SCH (09:12)
[2018-09-01] MEDS: PANTOPRAZOLE 40 MG VIAL IV SCH ×2 (09:31→22:25)
[2018-09-01] MEDS: DESITIN 4OZ/NYSTATIN 15 GRAM MIXTURE PASTE TOP SCH ×2 (09:31→22:27)
[2018-09-01] MEDS ORDERED: predniSONE 20 MG TABLET PO SCH (10:00)
[2018-09-01] MEDS: predniSONE 20 MG TABLET PO SCH (11:05)
[2018-09-02] MEDS: ALBUTEROL/IPRATROPIUM 3 ML NEB RESP TX SCH ×3 (03:35→11:51)
[2018-09-02 04:53] LABS: Basophils % 0.3 % (0.0-0.8); Hematocrit 31.3 VOL% (35.7-47.0); Hemoglobin 10.4 GM/DL (12.0-16.0); Immature Granulocytes % 3.4 %; Immature Granulocytes Absolute 0.39 #; Lymphocytes # 1.1 10*3/uL (1.4-4.0); Mean Corpuscular HGB Conc 33.2 GM/DL (32-36); Mean Corpuscular Volume 92.3 FL (87-102); Mean Platelet Volume 9.6 FL (9.6-12.0); Monocytes % 7.6 % (1.7-12.7); Neutrophils % 78.7 % (38.7-73.9); Platelet Count 216 T/CUMM (130-400); Red Blood Count 3.39 MC/CUMM (3.8-5.5); Red Cell Distribution Width 16.9 % (9.3-17.3); White Blood Count 11.5 T/CUMM (4-12)
[2018-09-02] MEDS: CYANOCOBALAMIN 500 MCG TABLET PO SCH (08:50)
[2018-09-02] MEDS: DRONEDARONE 400 MG TABLET PO SCH (08:50)
[2018-09-02] MEDS: predniSONE 20 MG TABLET PO SCH (08:51)
[2018-09-02] MEDS: METOPROLOL TARTRATE 25 MG TABLET PO SCH (08:51)
[2018-09-02] MEDS: DILTIAZEM CD 120 MG CAPSULE PO SCH (08:51)
[2018-09-02] MEDS: NYSTATIN 500,000 UNIT/5 ML UDCUP SWISH/SWAL SCH (08:52)
[2018-09-02] MEDS: DESITIN 4OZ/NYSTATIN 15 GRAM MIXTURE PASTE TOP SCH (10:12)
[2018-09-02] MEDS: PANTOPRAZOLE 40 MG VIAL IV SCH (10:12)
[2018-09-02 12:06] VITALS: BP 124/71
== END 2018-09-02 14:50 | disposition swing bed (61) | DRG 207 ==
LOC: SUATTDRO 18:20 → N.ICU 18:20 → N.2E 08-26 01:49 → N.CC 08-28 02:58 → N.TELEN 08-29 22:13
PROVIDERS: ADMIT Internal Medicine; ATTEND Internal Medicine